=== PATIENT | female | born 1995 | race American Indian/Alaskan Native ===

== ENCOUNTER 2016-03-08 22:35 | Emergency (ER) | payer MEDICAID ==
[2016-03-08 23:19] VITALS: BP 114/75
[2016-03-08 23:37] LABS: Basophils % (Auto) 0.8 % (0.0-1.8); Eosinophils % (Auto) 4.8 % (0.0-4.3); Hematocrit 38.3 % (30.3-42.9); Hemoglobin 12.5 gm/dl (10.1-14.3); Mean Corpuscular HGB Conc 33 % (30-34); Mean Corpuscular Hemoglobin 30 pg (28-32); Mean Corpuscular Volume 92 fl (79-97); Platelet Count 303 K/mm3 (140-440); Red Blood Count 4.16 M/mm3 (3.65-5.03); Red Cell Distribution Width 15.1 % (13.2-15.2); White Blood Count 5.3 K/mm3 (4.5-11.0)
[2016-03-09 00:07] LABS: Alanine Aminotransferase 12 units/L (7-56); Albumin 4.7 g/dL (3.9-5); Albumin/Globulin Ratio 1.2 %; Alkaline Phosphatase 83 units/L (35-129); Bilirubin,Total < 0.2 mg/dL (0.1-1.2); Blood Urea Nitrogen 12 mg/dL (7-17); Calcium 9.2 mg/dL (8.4-10.2); Carbon Dioxide 26 mmol/L (22-30); Chloride 99.7 mmol/L (98-107); Glucose 92 mg/dL (65-100); Lipase 15 units/L (13-60); Potassium 4.3 mmol/L (3.6-5.0); Sodium 141 mmol/L (137-145); Total Protein 8.7 g/dL (6.3-8.2)
[2016-03-09 00:09] LABS: Anion Gap 20 mmol/L
[2016-03-09 00:14] LABS: Bilirubin,Urine NEG (Negative); Blood,Urine LG (Negative); Ketones,Urine NEG (Negative); Leukocyte Esterase,Urine TR (Negative); Mucus,Urine 1+ /HPF; Nitrite,Urine NEG (Negative); Protein,Urine <15 mg/dL mg/dL (Negative); Urobilinogen,Urine < 2.0 mg/dL (<2.0)
--- NOTE | 2016-03-13 05:39 | ED Elopement Review ---
ED Pt Elopement review - Results review Lab results: Laboratory Tests 03/08/16 03/08/16 03/08/16 23:26 23:26 23:34 WBC 5.3 RBC 4.16 Hgb 12.5 Hct 38.3 MCV 92 MCH 30 MCHC 33 RDW 15.1 Plt Count 303 Lymph % (Auto) 47.3 H [place] % (Auto) 11.2 H Eos % (Auto) 4.8 H Baso % (Auto) 0.8 Lymph # 2.5 [place] # 0.6 Eos # 0.3 Baso # 0.0 Seg Neutrophils % 35.9 L Seg Neutrophils # 1.9 Sodium 141 Potassium 4.3 Chloride 99.7 Carbon Dioxide 26 Anion Gap 20 BUN 12 Creatinine 0.8 Estimated GFR > 60 BUN/Creatinine Ratio 15.00 Glucose 92 Calcium 9.2 Total Bilirubin < 0.2 AST 17 ALT 12 Alkaline Phosphatase 83 Total Protein 8.7 H Albumin 4.7 Albumin/Globulin Ratio 1.2 Lipase 15 Urine Color Yellow Urine Turbidity Clear Urine pH 6.0 Ur Specific [place] 1.026 Urine Protein <15 mg/dl Urine Glucose (UA) Neg Urine Ketones Neg Urine Blood Lg Urine Nitrite Neg Ur Reducing Substances Not Reportable Urine Bilirubin Neg Urine Ictotest Not Reportable Urine Urobilinogen < 2.0 Ur Leukocyte Esterase Tr Urine WBC (Auto) 4.0 Urine RBC (Auto) 45.0 U Epithel Cells (Auto) 6.0 Urine Mucus 1+ Urine HCG, Qual Negative - Call Back decision Pt Call Back Decision: No action required
== END 2016-03-09 18:51 | disposition left against medical advice (07) ==
LOC: ED 22:35
DX: R10.9 Unspecified abdominal pain (principal); Z53.21 Procedure and treatment not carried out due to patient leaving prior to being seen by health care provider
CPT/HCPCS: 36415; 80053; 81001; 81025; 83690; 85025